=== PATIENT | male | born 1975 | race Two or more races ===

== ENCOUNTER 2021-07-31 15:22 | Emergency (ER) | payer OTHER ==
[2021-07-31] MEDS ORDERED: Lidocaine 2% Viscous Solution 15 ML UD PO ONE (15:45)
[2021-07-31] MEDS ORDERED: Acetaminophen/HYDROcodone 325-5 MG Tab PO ONE (15:45)
[2021-07-31] MEDS ORDERED: Benzocaine 20% Topical Spray UD MUCMEM ONE (15:45)
[2021-07-31] MEDS ORDERED: Clindamycin HCl 150 MG Cap PO STA (15:49)
[2021-07-31 16:31] LABS: BLOOD UREA NITROGEN,BUN 14 mg/dL (7.0-18.0); CARBON DIOXIDE,CO2 23.8 mmol/L (21.0-32.0); CHLORIDE,CL 103 mmol/L (98-107); GLUCOSE RANDOM 119 mg/dL (74-106); POTASSIUM,K 3.5 mmol/L (3.5-5.1); SODIUM,NA 138 mmol/L (136-148)
== END 2021-07-31 18:11 | disposition home or self-care (01) ==
LOC: MW.ED 15:22
DX: R07.9 Chest pain, unspecified (principal); K08.89 Other specified disorders of teeth and supporting structures; Z79.899 Other long term (current) drug therapy; Z88.0 Allergy status to penicillin; Z88.6 Allergy status to analgesic agent; Z88.8 Allergy status to other drugs, medicaments and biological substances; Z91.018 Allergy to other foods
CPT/HCPCS: 36415; 71045; 80053; 84484; 85025; 93005; 99285; A9270; 93010; 99284

== ENCOUNTER 2022-04-29 17:05 | Emergency (ER) | payer OTHER ==
[2022-04-29] MEDS ORDERED: Sodium Chloride 0.9% 1,000 ML IV ONE (17:20)
[2022-04-29 18:10] LABS: CARBON DIOXIDE,CO2 22.7 mmol/L (21.0-32.0); POTASSIUM,K 3.7 mmol/L (3.5-5.1)
== END 2022-04-29 18:48 | disposition home or self-care (01) ==
LOC: MW.ED 17:05
DX: N39.0 Urinary tract infection, site not specified (principal); R31.9 Hematuria, unspecified; Z72.0 Tobacco use; Z88.6 Allergy status to analgesic agent; Z88.0 Allergy status to penicillin; Z88.8 Allergy status to other drugs, medicaments and biological substances; Z91.018 Allergy to other foods
CPT/HCPCS: 36415; 74176; 74176-26; 80053; 81001; 85025; 87086; 99283; 99284

== ENCOUNTER 2022-06-12 13:54 | Emergency (ER) | payer OTHER | END 2022-06-12 17:30 | disposition home or self-care (01) | LOC: MW.ED 13:54 | DX: R10.9 Unspecified abdominal pain (principal); Z88.8 Allergy status to other drugs, medicaments and biological substances; Z88.0 Allergy status to penicillin; Z91.018 Allergy to other foods | CPT/HCPCS: 81001; 99283; 99284 ==

== ENCOUNTER 2024-02-03 08:27 | Emergency (ER) | payer OTHER ==
[2024-02-03] MEDS: Dexamethasone 4 MG Tab PO ONE (09:11)
== END 2024-02-03 09:29 | disposition home or self-care (01) ==
LOC: MW.ED 08:27
DX: J40 Bronchitis, not specified as acute or chronic (principal); Z88.5 Allergy status to narcotic agent; Z88.8 Allergy status to other drugs, medicaments and biological substances; Z88.0 Allergy status to penicillin; Z91.018 Allergy to other foods
CPT/HCPCS: 99283; J8540

== ENCOUNTER 2024-10-31 10:26 | Emergency (ER) | payer OTHER ==
[2024-10-31] MEDS ORDERED: Sodium Chloride 0.9% 2.5 ML Syringe FLUSH PRN (10:34)
[2024-10-31] MEDS ORDERED: Sodium Chloride 0.9% 10 ML Syringe FLUSH PRN (10:34)
[2024-10-31 10:40] LABS: BASOPHILS ABSOLUTE AUTO 0.06 K/uL (0.00-0.20); BASOPHILS PERCENT AUTO 0.7 % (0.0-1.0); EOSINOPHILS ABSOLUTE AUTO 0.23 K/uL (0.00-0.45); EOSINOPHILS PERCENT AUTO 2.8 % (0.0-6.0); IMMATURE GRAN ABSOLUTE AUTO 0.01 K/uL (0.00-0.05); IMMATURE GRAN PERCENT AUTO 0.1 % (0.0-0.4); LYMPHOCYTES ABSOLUTE AUTO 2.19 K/uL (1.00-4.80); LYMPHOCYTES PERCENT AUTO 26.6 % (24.0-44.0); MEAN PLATELET VOLUME 8.9 fL (9.4-12.4); MONOCYTES ABSOLUTE AUTO 0.45 K/uL (0.00-0.80); MONOCYTES PERCENT AUTO 5.5 % (0.0-8.0); NEUTROPHILS ABSOLUTE AUTO 5.30 K/uL (1.80-7.70); NEUTROPHILS PERCENT AUTO 64.3 % (41.0-71.0); NRBC ABSOLUTE 0.00 K/uL (0.00-0.02); NRBC PERCENT 0.0 /100WBC (0.0-0.2); PLATELET COUNT,PLT 242 K/uL (150-400); RED BLOOD CELL COUNT 5.13 M/uL (4.52-5.90); WHITE BLOOD CELL COUNT,WBC 8.24 K/uL (3.9-11.3)
[2024-10-31] MEDS: Iopamidol 755 Mg/ML 100 ML Bottle IVPUSH ONE (10:50)
[2024-10-31 11:05] LABS: A/G RATIO 1.1 (0.9-1.6); ALANINE AMINOTRANSFERASE,ALT 27.0 IU/L (14-63); ASPARTATE AMNIOTRANSFERASE,AST 22.0 IU/L (15-37); BILIRUBIN TOTAL 0.8 mg/dL (0.2-1.0); BLOOD UREA NITROGEN,BUN 15.0 mg/dL (7.0-18.0); CARBON DIOXIDE,CO2 28.0 mmol/L (21.0-32.0); CHLORIDE,CL 104.0 mmol/L (98-107); CREATININE 1.1 mg/dL (0.8-1.3); EST CRCL DRUG DOSING (CG) 88.42 mL/min; GLUCOSE RANDOM 143.0 mg/dL (74-106); POTASSIUM,K 3.7 mmol/L (3.5-5.1); PROTEIN TOTAL,TP 7.2 g/dL (6.4-8.2); SODIUM,NA 139.0 mmol/L (136-148)
[2024-10-31 11:07] LABS: INR 0.97 (0.86-1.11); PTT,PARTIAL THROMBOPLSTIN TIME 28.9 SEC (23.9-30.7)
[2024-10-31 11:10] LABS: ESTIMATED GFR 83.0 mL/min (>60)
== END 2024-10-31 12:41 ==
LOC: MW.ED 10:26
DX: I63.9 Cerebral infarction, unspecified (principal); R27.0 Ataxia, unspecified; Z88.6 Allergy status to analgesic agent; Z91.018 Allergy to other foods; Z88.0 Allergy status to penicillin; Z88.8 Allergy status to other drugs, medicaments and biological substances; Z79.899 Other long term (current) drug therapy
CPT/HCPCS: 36415; 37195; 70450; 70496; 70498; 80053; 84484; 85025; 85610; 85730; 93005; 99285; J3101; Q9967; 93010